=== PATIENT | female | born 1935 | race African-American/Black ===

== ENCOUNTER 2016-11-13 12:01 | Observation (INO) | payer MEDICARE, BC, OTHER ==
[~2016-11-13] VITALS: Ht 162.6 cm; Wt 83.1 kg
--- NOTE | ~2016-11-13 | OR ---
Unit #: [id number] #: [id number] Patient: JOE SMITH [id number] [facility]. [place], [place] [address] [id number] MR#: [id number] NAME: JOE SMITH ROOM: [facility] Date of Procedure: 11/14/2016 Admission Date: 11/13/2016 Surgeon: Kylah Butcher M.D. : 1935 Attending Physician: Abhi Hurley M.D. Primary Care Physician: Pallavi Melton M.D. OPERATIVE REPORT PREOPERATIVE DIAGNOSIS Malfunctioning left arm shunt. 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 ANESTHESIA Local and sedation. Total time monitoring sedation, 35 minutes. PROCEDURES PERFORMED 1. Ultrasound-guided cannulation, left axillary loop shunt. 2. Left upper extremity shuntogram. 3. Central venogram. 4. Balloon angioplasty of mid arm left axillary loop shunt with 6 mm x 60 mm Emery balloon. COMPLICATIONS None. ESTIMATED BLOOD LOSS 20 mL. SPECIMEN None. INDICATIONS FOR PROCEDURE The patient is an 81-year-old female with a history of end-stage renal disease, on dialysis via a left arm loop shunt. She has been having poor clearances via her shunt and was recommended a shuntogram with possible intervention. She was told of the planned procedure including the associated risks and benefits and she does wish to proceed. DESCRIPTION OF PROCEDURE The patient was taken to the IR suite and placed on the operating room table in the supine position. Following initiation of continuous pulse, pulse oximetry, and blood pressure monitoring by nursing staff, was given a total of 1 mg of Versed and 25 mcg of fentanyl with total time of monitoring sedation of 35 minutes. The left arm was then prepped and draped sterilely in the normal standard manner. Using ultrasound, the shunt was identified near the antecubital fossa and 1% lidocaine was infused over. With ultrasound guidance, the shunt was cannulated with the Micro-Access needle followed by placement of a microwire and then a Micro-Access 4-Marshallese sheath. Shuntogram was performed of the entire Unit #: [id number] #: [id number] Patient: JOE SMITH shunt with a distal compression use for proximal shunt evaluation. Central venogram was then performed with hand injection of contrast from the axillary vein to the SVC atrial junction. Next, using ultrasound, the shunt was noted in the medial arm and 1% lidocaine was infused over it. Under ultrasound guidance, the shunt was cannulated with a new micropuncture kit with the Micro-Access 4-Marshallese sheath being inserted. The previously initially placed. Micro sheath was then removed and pressure was held on the site for 5 minutes and then no bleeding was noted. The micro sheath in the medial arm was then cannulated with a Glidewire, which was passed under fluoroscopy to the central venous system. The micro sheath was then exchanged for a 4-Marshallese pinnacle sheath. The patient was given heparin 8000 units and allowed to circulate for 3 minutes. Utilizing a 4-Marshallese angled glide catheter, the Glidewire was exchanged for a 0.018 inch [place] Plus wire. A 6 mm x 60 mm Emery balloon was advanced over the wire and balloon dilation was performed in two locations of the shunt up to 15 atmospheres and held in place for 3 minutes each insufflation. Upon completion, the balloon was removed and a followup shuntogram was performed with hand injection of contrast, which demonstrated no residual stenosis. This was accepted. A [id number] 4-0 Monocryl sutures were placed at the sheath entrance site in the medial arm and secured with sheath removal. No bleeding was then noted. The heparin was not reversed. Dressings were then applied and the procedure was terminated. The patient tolerated the procedure well and was taken to the recovery room in stable condition. All needle, sponge, and instrument counts were correct at the end of the case. FINDINGS The left upper extremity axillary loop shunt was widely patent, but a stenosis was noted in the venous outflow side of the shunt along the majority of the shunt from the lower arm to the upper arm. There is a stent in place noted at the upper arm venous aspect of the shunt extending into the axillary vein. The axillary vein, subclavian vein, innominate vein, and superior vena cava is widely patent. There was minimal stenosis noted at the distal aspect of the stent, which was not noted to be hemodynamically significant. Following balloon angioplasty of the mid arm venous aspect side of the shunt, there was no residual stenosis. Dictated by... Kylah Butcher M.D. MJ/eleno TD: 11/14/2016 16:53 JOB #: [id number] OPERATIVE REPORT Page 1 of 1 X Kylah Butcher MD PROCEDURE OPERATIVE NOTE
--- NOTE | ~2016-11-13 | DS ---
Unit #: [id number] #: [id number] Patient: JOE SMITH [id number] [facility]. [place], [place] [address] [id number] I MR#: [id number] NAME: JOE SMITH ROOM: [facility] Age: 81 Sex: F Admission Date: 11/13/2016 : 1935 Discharge Date: 11/16/2016 Attending Physician: Abhi Hurley M.D. Primary Care Physician: Pallavi Melton M.D. DISCHARGE SUMMARY PERTINENT HISTORY AND HOSPITAL COURSE The patient is an 81-year-old woman with a history significant for endstage renal disease, on hemodialysis, as well as a history significant for hypertension and diabetes mellitus. The patient was brought to the hospital. She was unable to get dialysis for the past 5 days as a result of unable to get access to her dialysis shunt. She had a malfunctioning left arm shunt, for which vascular surgery was consulted. She underwent ultrasound-guided cannulation and balloon angioplasty of the mid arm left axillary loop shunt with Emery balloon. Following this procedure, the AV fistula shunt was functioning, and the patient received dialysis. During her hospitalization the patient was noted to be bradycardic. Her dose of Coreg has been reduced to 3.125 mg twice a day. Also during her admission her Levemir dose was reduced to avoid hypoglycemia. Also during her admission the patient was noted to be anemic. The patient is planned to receive an increased dose of Epogen and transfusion with dialysis today. At discharge the patient is awake, not in distress. Vitals are stable. The patient is to be discharged to the [facility] following dialysis. DISCHARGE MEDICATIONS 1. Albuterol inhaler q.4 p.r.n. shortness of breath. 2. Flomax 0.4 mg p.o. daily. 3. Tylenol 650 mg p.o. q.4 p.r.n. 4. Gabapentin 100 mg p.o. t.i.d. 5. Lexapro 20 mg p.o. at bedtime. 6. Lipitor 80 mg p.o. at bedtime. 7. Coreg 3.125 mg p.o. b.i.d. 8. Norvasc 10 mg p.o. daily. 9. Colace 200 mg p.o. as needed for constipation. 10. Furosemide 40 mg p.o. b.i.d. 11. Hydralazine 100 mg p.o. t.i.d. 12. Lantus 25 units subcu at bedtime. 13. Aspirin 81 mg p.o. daily. 14. Plavix 75 mg p.o. daily. 15. Calcium acetate 667 mg p.o. t.i.d. 16. Folic acid 0.8 mg p.o. daily. DISCHARGE DIAGNOSES 1. Malfunctioning hemodialysis shunt. 2. Percutaneous balloon angioplasty of malfunctioning hemodialysis shunt, which is now functioning. 3. Endstage renal disease. 4. Anemia. Unit #: [id number] #: [id number] Patient: JOE SMITH 5. Sinus bradycardia. 6. Diabetes mellitus. DISCHARGE INSTRUCTIONS 1. Patient is to follow up with primary care physician. 2. Patient is to follow up with nephrology and hemodialysis as outpatient. Dictated by... Noreen Perez TD: 11/16/2016 14:59 JOB #: [id number] DISCHARGE SUMMARY Page 1 of 1 X X DISCHARGE SUMMARY
--- NOTE | ~2016-11-13 | HP ---
Unit #: [id number] #: [id number] Patient: JOE SMITH [id number] [place], [place] [address] [id number] MR#: [id number] NAME: JOE SMITH ROOM: [address] Age: 81 Sex: F Admission Date: 11/13/2016 : 1935 Attending Physician: Jasvir López M.D. Primary Care Physician: Pallavi Melton M.D. HISTORY AND PHYSICAL CHIEF COMPLAINT Blocked dialysis shunt. HISTORY OF PRESENT ILLNESS The patient is an 81-year-old female with a history of diabetes and end-stage renal disease from diabetes brought to the emergency room from the dialysis center with a dialysis catheter problem. The patient has been having problems for the last two weeks. The patient had poor venous return with clotted blood. The patient is also on Plavix for atherosclerotic cardiovascular disease. The patient is being admitted for the above reasons. The patient is scheduled for tunneled catheter with shuntogram tomorrow by vascular surgeon. Patient has had the catheter for two years. Denies any fever, denies any chest pain, denies any nausea or vomiting. PAST MEDICAL HISTORY 1. Hypertension. 2. Lung cancer. 3. Diabetes with insulin use. 4. End-stage renal disease. PAST SURGICAL HISTORY Hysterectomy. HOME MEDICATIONS 1. Colace. 2. Macrobid. 3. Acetaminophen. 4. Amlodipine. 5. Aspirin. 6. Lipitor. 7. Calcium acetate. 8. Coreg. 9. Plavix. 10. Cyclobenzaprine. 11. Lasix. 12. Gabapentin. 13. Hydralazine. 14. Lantus. 15. Debbie-Shravan. 16. Tamsulosin. 17. Ventolin. FAMILY HISTORY Unit #: [id number] #: [id number] Patient: JOE SMITH Reviewed and none. SOCIAL HISTORY No history of smoking cigarettes, drinking alcohol, or any illicit drug abuse. REVIEW OF SYSTEMS Denies any chest pain, denies any nausea, denies any shortness of breath. Other systems have been reviewed and none. PHYSICAL EXAMINATION GENERAL: Patient is lying in bed not in acute distress. VITAL SIGNS: Temperature 98.1, pulse 70, respiratory rate 16, blood pressure 148/60, and saturating 97% on 3 liters. HEENT: Head atraumatic, normocephalic. Pupils equal, round, and reactive to light and accommodation. Extraocular movements are intact. Dry mucous membranes. NECK: Supple. LUNGS: Decreased air entry at the bases. HEART: Regular rate and rhythm. Positive for murmur. EXTREMITIES: Patient has a hemodialysis catheter with a bruit on the left side. EXTREMITIES: No cyanosis, no clubbing. NEUROLOGIC: Alert, awake, and oriented. No gross focal motor deficit. DIAGNOSTIC STUDIES LABORATORY: Sodium 133, potassium 4.2, chloride 96, bicarb 27, glucose 126, BUN 37, creatinine 6.2, and calcium 9. INR is 1.1. WBC 13, hemoglobin 8.4, hematocrit 25.3, and platelets 231,000. ASSESSMENT 1. Hemodialysis catheter malfunction. 2. Anemia (1) kidney disease. 3. End-stage renal disease, on hemodialysis. PLAN Admit the patient to observation with telemetry. Patient has been seen by Vascular Surgery in consult and is awaiting catheter placement in the morning at 7:30 with shuntogram with a tunneled dialysis catheter. Hold the Plavix. Continue with hemodialysis as per Renal. Further recommendations will follow. Dictated by Noreen Olson/gilson TD: 11/13/2016 16:48 JOB #: [id number] Unit #: [id number] #: [id number] Patient: JOE SMITH HISTORY AND PHYSICAL Page 1 of 1 X JASVIR LÓPEZ MD X HISTORY AND PHYSICAL
--- NOTE | ~2016-11-13 | CO ---
Unit #: [id number] #: [id number] Patient: JOE SMTIH [id number] [facility] [address] [facility]. [place], [place] [address] [id number] I MR#: [id number] NAME: JOE SMITH ROOM: [facility] Age: 81 Sex: F Admission Date: 11/13/2016 : 1935 Attending Physician: Abhi Hurley M.D. Primary Care Physician: Pallavi Melton M.D. Consultation Date: 11/13/2016 CONSULTATION REPORT REASON FOR CONSULT Difficulty with dialysis access. HISTORY OF PRESENT ILLNESS This is an 81-year-old female being seen at [facility] Emergency Room for malfunction of her left arm shunt. In discussion with the patient and her family, the shunt has not been working very well for over the last month. They report ineffective treatments, partial treatments and missed dialysis appointments as a result of these malfunctions. 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 We last saw her in 2013 and recommended she be evaluated by hematology for possible hypercoagulable state. She saw hematology, and no hypercoagulable state was found. Her most recent dialysis access was placed by Dr. Bynum, and the family also reports her having a history of prolonged tunnel catheter placement. She, in the past, has been on dialysis on Mondays, Wednesdays and Fridays, but now that she resides at the [place] she has switched to Sunday, and Sunday hemodialysis. PAST MEDICAL HISTORY 1. Hypertension. 2. Diabetes mellitus. 3. Endstage renal disease, on hemodialysis. ALLERGIES No medication allergies listed. MEDICATION LIST 1. Acetaminophen 325 as needed. 2. Amlodipine 10 mg daily as needed. 3. Aspirin 81 mg. 4. Atorvastatin 80 mg. 5. Calcium acetate 667 mg 1 tablet t.i.d. 6. Carvedilol 12.5 mg p.o. daily. 7. Clopidogrel 75 mg 1 tablet daily. 8. Cyclobenzaprine 10 mg 1 tablet daily. 9. Docusate sodium 100 mg 1 tablet daily. 10. Escitalopram 10 mg 2 tablets daily. 11. Furosemide 40 mg daily. 12. Gabapentin 100 mg 1 capsule at bedtime. 13. Hydralazine 100 mg oral 1 tablet at bedtime. 14. Lantus 100 units per mL subcu, 40 units. 15. Vitamin B complex capsule daily. Unit #: [id number] #: [id number] Patient: JOE SMITH 16. Tamsulosin 0.4 mg oral capsule. 17. Ventolin albuterol inhaler. SOCIAL HISTORY The patient resides at [place]. She denies smoking, alcohol or drug use. FAMILY HISTORY The patient has a son also with endstage renal disease. REVIEW OF SYSTEMS Unless otherwise noted in the history of present illness, a 12-point review of systems was completed and found negative. PHYSICAL EXAMINATION VITALS: Temperature 98.1, heart rate 70, blood pressure 148/60, respirations 16. GENERAL APPEARANCE: This is a well-developed, well-nourished female in no acute distress. HEENT: Normocephalic. Pupils are equal, round and reactive to light. NECK: No carotid bruits. CARDIAC: Regular rate and rhythm. No murmurs noted. LUNGS: Clear to auscultation with diminished bilateral bases. The patient is on nasal cannula oxygenation. ABDOMEN: Positive bowel sounds. Soft, nontender. No distention. MUSCULOSKELETAL: Upper extremities - The left arm is with palpable radial pulses. There is a left arm shunt with audible bruit and good quality thrill. INTEGUMENTARY: No obvious sores, lesions or wounds. NEUROLOGIC: Cranial nerves II-XII grossly intact. PSYCHIATRIC: Oriented to person, place and time. However, the patient is a difficult historian. DIAGNOSTIC STUDIES LABORATORY DATA: Sodium 133, potassium 4.2, chloride 96, CO2 27, BUN 37, creatinine 6.2, glucose 28. Hemoglobin 8.4, hematocrit 25.3, WBC 13, platelets 231. ASSESSMENT/PLAN 1. Hemodialysis shunt malfunction. 2. After discussion with Dr. Marshall of nephrology, the plan will be for the patient to undergo shuntogram tomorrow. At that time, a tunneled dialysis catheter may be placed given her ongoing difficulty and history of difficulty with hemodialysis access. We will hold Plavix going forward. NPO past midnight and obtain consent. Dictated by... Bello Ga APRN for Kylah Butcher M.D. TEETEE/luis TD: 11/14/2016 10:05 JOB #: [id number] Unit #: [id number] #: [id number] Patient: JOE SMITH CONSULTATION REPORT Page 1 of 1 X X CONSULTATION REPORT
--- NOTE | ~2016-11-13 | CO ---
Unit #: [id number] #: [id number] Patient: JOE RAI [id number] [facility] [address] [facility]. [place], [place] [address] [id number] MR#: [id number] NAME: JOE RAI ROOM: [facility] Age: 81 Sex: F Admission Date: 11/13/2016 : 1935 Attending Physician: Abhi Hurley M.D. Primary Care Physician: Pallavi Melton M.D. Consultation Date: 11/13/2016 CONSULTATION REPORT REASON FOR CONSULT Endstage renal disease. HISTORY Thank you very much for asking us to see this patient in consultation. Ms. Joe Rai is an 81-year-old female with history of endstage renal disease, on hemodialysis normally every Sunday, Sunday and Sunday, who has had access placed for dialysis in her left upper arm by Dr. Bynum, who apparently is in the [facility] system. The patient was unable to get her access stuck on Sunday of last week, as well as today due to insurance reasons and transportation problems. Subsequently she was brought here to [facility] with no dialysis in 5 days. She states she is having some mild shortness of breath. She is not having any chest pain or chest heaviness. No nausea or vomiting. She is accompanied by her son here, who is actually also on dialysis. PAST MEDICAL HISTORY 1. History of endstage renal disease, on hemodialysis apparently for a couple years. Initially was using a tunnelled catheter for about a year and now has been using a fistula but, according to the son, multiple difficulties with this. S 2. History of hypertension. 3. History of diabetes mellitus. 4. History of congestive heart failure, although echo in 02/2013 showed normal EF. 5. History of hyperlipidemia. 6. History of arthritis. 7. Status post hysterectomy. 8. Status post angioplasty and stent placement, on Plavix apparently. MEDICATIONS Unknown at this time. ALLERGIES Penicillin FAMILY HISTORY She has a son who, again, is also on dialysis. SOCIAL HISTORY She does not smoke or drink. She currently lives in [place] and gets her dialysis there every Sunday, Sunday and Sunday. Unit #: [id number] #: [id number] Patient: JOE RAI REVIEW OF SYSTEMS She denies any fevers, chills, visual problems, sinus problems, cough, hemoptysis, sore throat, difficulty swallowing. No neck pain, neck stiffness. No chest pain, chest heaviness, palpitations. She does have some increased shortness of breath but not severe. No severe abdominal pain. No nausea or vomiting, diarrhea. No significant swelling. No recent seizures, strokes or skin rashes. PHYSICAL EXAMINATION GENERAL: She is alert, a very poor historian. VITAL SIGNS: Temperature is 98.1, blood pressure 148/60, pulse 70. HEENT: Normocephalic, atraumatic. Pupils are equal, round and reactive to light. Extraocular muscles are intact. Hearing appears to be normal. Mouth is clear, no erythema, no exudate. NECK: Supple. No JVD. CARDIAC: She has a regular rhythm without a rub. No S3 or S4. LUNGS: Lungs are clear bilaterally. No wheezes, rhonchi or rales. ABDOMEN: Bowel sounds are positive. Nontender, soft. EXTREMITIES: She has no lower extremity swelling. She has a fistula in her left arm with a good thrill. NEUROLOGIC: Appears intact motor and sensory grossly. : Deferred. DIAGNOSTIC STUDIES LABORATORY DATA: BUN of 37, creatinine 6.2, potassium 4.2, bicarb 27, sodium 133, calcium 9. INR 1.1. Hemoglobin is 8.4, white count 13,000, platelets 231,000. ASSESSMENT AND PLAN 1. Endstage renal disease. Again, patient without dialysis x5 days, although her potassium and volume status are not that bad. Certainly, access problems and transportation are the main issues. What I would like to do is get her admitted, try to do regular hemodialysis through her fistula, have surgeons here evaluate her and possible need for a tunnelled catheter in the morning if needed. Certainly, do not want a Shiley due to the fact that they cannot get her to dialysis unit with that. Also, may need long-term tunnel until the fistula either can continue to be used or not. Will ask surgery to see. Will try to dialyze later today. 2. Anemia. Hemoglobin is low. Will put her on epo, follow her trends. 3. History of heart disease, on Plavix currently and will certainly hold that for now. 4. Diabetes mellitus, per primary. Thank you very much. Dictated by... Mayi Marshall M.D. JERRY/luis TD: 11/14/2016 08:42 JOB #: [id number] Unit #: [id number] #: [id number] Patient: JOE RAI CONSULTATION REPORT Page 1 of 1 X Lukas Marshall MD X CONSULTATION REPORT
[~2016-11-13 12:01] MED LIST: ACCUPRIL PO; AMARYL PO; ASPIRIN PO; BACTRIM DS TABL1 TA1 PO; CHLORTHALIDONE25 MG PO; COLACE PO; COREG PO; FAMOTIDINE PO; FERREX 150 FOR1 EACH PO; GLUCOTROL PO; HCTZ PO; HYDRALAZINE HCL50 MG PO; INSULIN; LANTUS100 U/ML SUBQ; LANTUS100 UNITS/ SUBQ; LIPITOR PO; LOTREL 10/40 MG1 CAP PO; LOTREL PO; MACROBID 100 M100 MG PO; METFORMIN PO; MEVACOR PO; NEPHRO-VITE RX T1 M1 PO; PRAVACHOL PO; PREDNISONE PO; SOD BICARBONATE PO; SODIUM BICARBO650 MG PO; ZITHROMAX500 MG PO
[2016-11-13 13:01] LABS: BASOPHIL# 0.1 X10e3 (0-0.3); BASOPHIL% 0.7 % (0-2.5); EOSINOPHIL# 0.5 X10e3 (0-0.7); EOSINOPHIL% 3.8 % (0.0-7.0); HEMATOCRIT 25.3 % (35.0-45.0); HEMOGLOBIN 8.4 gm/dL (12.0-16.0); LYMPHOCYTE# 0.8 X10e3 (1.0-3.5); LYMPHOCYTE% 5.9 % (17.0-45.0); MEAN CELL VOLUME 84.4 FL (83-96); MEAN CORPUSCULAR HGB CONC 33.2 g/dL (30-36); MEAN PLATELET VOLUME 8.3 FL (6.5-11.5); MONOCYTE# 0.5 X10e3 (0-1.0); MONOCYTE% 3.9 % (3.0-12.0); NEUTROPHIL# 11.1 X10e3 (1.5-7.1); NEUTROPHIL% 85.7 % (40-75); PLATELET COUNT 231 X10e3 (140-420); RED BLOOD COUNT 2.99 X10e (3.90-5.30); RED CELL DISTRIBUTION WIDTH 17.4 % (11.0-15.5)
[2016-11-13 13:02] LABS: DIFF IND NO
[2016-11-13 13:13] LABS: INR 1.1
[2016-11-13 13:29] LABS: BUN/CREATININE RATIO 5.96; CREATININE SERUM 6.2 mg/dL (0.6-1.4); GLOM FILT RATE Estimated 6.8 mL/min (>60); POTASSIUM 4.2 mmol/L (3.5-5.1)
[2016-11-13] MEDS ORDERED: PAIN RELIEF325 M1 PO (20:06)
[2016-11-13] MEDS ORDERED: NORVASC10 MG PO (20:07)
[2016-11-13] MEDS ORDERED: ASPIRIN81 M2 PO (20:07)
[2016-11-13] MEDS ORDERED: PHOSLO667 M1 PO (20:08)
[2016-11-13] MEDS ORDERED: ATORVASTATIN CA80 MG PO (20:08)
[2016-11-13] MEDS ORDERED: CARVEDILOL12.5 MG PO (20:09)
[2016-11-13] MEDS ORDERED: CLOPIDOGREL75 MG PO (20:10)
[2016-11-13] MEDS ORDERED: FLEXERIL10 MG PO (20:11)
[2016-11-13] MEDS ORDERED: ESCITALOPRAM OX10 MG PO (20:12)
[2016-11-13] MEDS ORDERED: FUROSEMIDE40 MG PO (20:13)
[2016-11-13] MEDS ORDERED: NEURONTIN100 MG PO (20:13)
[2016-11-13] MEDS ORDERED: HYDRALAZINE HC100 MG PO (20:14)
[2016-11-13] MEDS ORDERED: LANTUS100 U/ML SUBQ (20:15)
[2016-11-13] MEDS ORDERED: RENAL-VITE TAB0.8 MG PO (20:16)
[2016-11-13] MEDS ORDERED: FLOMAX0.4 M1 PO (20:17)
[2016-11-13] MEDS ORDERED: PROAIR RESPICL90 MCG INH (20:38)
[2016-11-14 05:29] LABS: HEMATOCRIT 21.6 % (35.0-45.0); HEMOGLOBIN 7.1 gm/dL (12.0-16.0); MEAN CELL VOLUME 84.9 FL (83-96); MEAN CORPUSCULAR HEMOGLOBIN 27.9 PG (28-34); MEAN CORPUSCULAR HGB CONC 32.9 g/dL (30-36); MEAN PLATELET VOLUME 8.4 FL (6.5-11.5); RED BLOOD COUNT 2.54 X10e (3.90-5.30); RED CELL DISTRIBUTION WIDTH 17.3 % (11.0-15.5); WHITE BLOOD COUNT 9.9 X10e3 (4.0-10.5)
[2016-11-14 05:41] LABS: INR 1.2; PROTHROMBIN TIME (PATIENT) 12.7 SECONDS (10.0-11.7)
[2016-11-14 07:34] LABS: BUN/CREATININE RATIO 6.19; CALCIUM SERUM 8.1 mg/dL (8.4-10.2); CREATININE SERUM 7.1 mg/dL (0.6-1.4); GLOM FILT RATE Estimated 5.8 mL/min (>60); POTASSIUM 4.8 mmol/L (3.5-5.1)
[2016-11-14 17:24] LABS: HEMATOCRIT 25.2 % (35.0-45.0); HEMOGLOBIN 8.7 gm/dL (12.0-16.0); MEAN CELL VOLUME 84.1 FL (83-96); MEAN CORPUSCULAR HEMOGLOBIN 29.2 PG (28-34); MEAN CORPUSCULAR HGB CONC 34.7 g/dL (30-36); MEAN PLATELET VOLUME 8.1 FL (6.5-11.5); RED BLOOD COUNT 2.99 X10e (3.90-5.30); RED CELL DISTRIBUTION WIDTH 16.3 % (11.0-15.5); WHITE BLOOD COUNT 9.8 X10e3 (4.0-10.5)
[2016-11-15 06:22] LABS: HEMATOCRIT 22.6 % (35.0-45.0); HEMOGLOBIN 7.8 gm/dL (12.0-16.0); MEAN CELL VOLUME 85.4 FL (83-96); MEAN CORPUSCULAR HEMOGLOBIN 29.5 PG (28-34); MEAN CORPUSCULAR HGB CONC 34.6 g/dL (30-36); MEAN PLATELET VOLUME 8.9 FL (6.5-11.5); RED BLOOD COUNT 2.65 X10e (3.90-5.30); RED CELL DISTRIBUTION WIDTH 16.7 % (11.0-15.5)
[2016-11-15 06:52] LABS: BUN/CREATININE RATIO 5.47; CALCIUM SERUM 8.2 mg/dL (8.4-10.2); GLOM FILT RATE Estimated 10.9 mL/min (>60)
[2016-11-15 06:53] LABS: CREATININE SERUM 4.2 mg/dL (0.6-1.4)
[2016-11-16 09:11] LABS: HEMOGLOBIN 7.7 gm/dL (12.0-16.0); MEAN CORPUSCULAR HEMOGLOBIN 28.4 PG (28-34); MEAN CORPUSCULAR HGB CONC 33.4 g/dL (30-36); MEAN PLATELET VOLUME 8.1 FL (6.5-11.5); RED BLOOD COUNT 2.7 X10e (3.90-5.30); WHITE BLOOD COUNT 11.1 X10e3 (4.0-10.5)
[2016-11-16 09:44] LABS: BUN/CREATININE RATIO 6.18; CALCIUM SERUM 8.5 mg/dL (8.4-10.2); CREATININE SERUM 5.5 mg/dL (0.6-1.4); GLOM FILT RATE Estimated 7.8 mL/min (>60); POTASSIUM 4.4 mmol/L (3.5-5.1)
== END 2016-11-16 18:44 ==
LOC: CED 12:01 → CEDOF 16:00 → C5B 16:34 → CED 16:34 → CEDOF 16:34 → C5B 18:20 → CEDOF 18:20 → C5B 11-14 07:34
PROVIDERS: Emergency Medicine; Internal Medicine; Internal Medicine Nephrology
DX: T82.858A Stenosis of other vascular prosthetic devices, implants and grafts, initial encounter (principal); T82.41XA Breakdown (mechanical) of vascular dialysis catheter, initial encounter; N18.6 End stage renal disease; D64.9 Anemia, unspecified; R00.1 Bradycardia, unspecified; E11.9 Type 2 diabetes mellitus without complications; I10 Essential (primary) hypertension; C34.90 Malignant neoplasm of unspecified part of unspecified bronchus or lung; Y84.1 Kidney dialysis as the cause of abnormal reaction of the patient, or of later complication, without mention of misadventure at the time of the procedure; Z79.899 Other long term (current) drug therapy; Z79.82 Long term (current) use of aspirin; Z79.01 Long term (current) use of anticoagulants; Z79.4 Long term (current) use of insulin; Z90.710 Acquired absence of both cervix and uterus; Z99.2 Dependence on renal dialysis
CPT/HCPCS: 36415; 36430; 80048; 82947; 85025; 85027; 85610; 85730; 86850; 86900; 86901; 86923; 94760; 99152; 99153; 99285; C1725; G0257; G0378; J1644; J2250; J3010; P9016; Q4081; Q9967